=== PATIENT | female | born 1990 | race African-American/Black ===

== ENCOUNTER 2024-02-22 10:42 | Outpatient (CLI) | payer OTHER | END 2024-02-22 10:43 | disposition home or self-care (01) | LOC: CSHULT 10:42 | PROVIDERS: ATTEND Family Medicine | DX: Z34.82 Encounter for supervision of other normal pregnancy, second trimester (principal); Z3A.19 19 weeks gestation of pregnancy | CPT/HCPCS: 76805 ==